=== PATIENT | female | born 1955 | race Two or more races ===

== ENCOUNTER 2023-08-01 20:10 | Emergency (ER) | payer OTHER ==
[~2023-08-01] VITALS: Ht 165.1 cm; Wt 90.0 kg
[2023-08-01] MEDS: SODIUM CHLORIDE 0.9% 500 ML IVB ONE (20:45)
[2023-08-01] MEDS ORDERED: DOCUSATE SOD 100 MG CAP PO PRN (21:15)
[2023-08-01] MEDS ORDERED: ONDANSETRON HCL 4 MG/2 ML VIAL IV PRN (21:15)
[2023-08-01 21:25] LABS: Basophils # (auto) 0.1 10 ^3/uL (0-0.2); Basophils % (auto) 0.6 % (0.0-2.0); Eosinophils # (auto) 0 10 ^3/uL (0-0.8); Eosinophils % (auto) 0.5 % (0.0-7.0); Hemoglobin 12.5 g/dL (12.2-16.2); Lymphocytes # (auto) 1.8 10 ^3/uL (0.4-5.4); Lymphocytes % (auto) 19.4 % (10.0-50.0); Mean Corpuscular Hemoglobin 30.3 pg (28.0-32.0); Mean Corpuscular Volume 91.9 fL (80.0-100.0); Monocytes # (auto) 0.6 10 ^3/uL (0-1.3); Monocytes % (auto) 6.5 % (0.0-12.0); Neutrophils # (auto) 6.9 10 ^3/uL (1.6-8.6); Red Blood Cells 4.14 10^6/uL (4.0-5.20); Red Cell Distribution Width 13.6 % (11.8-14.3); White Blood Cell 9.5 10^3/uL (4.4-10.8)
[2023-08-01 21:38] LABS: Alanine Aminotransferase 20 U/L (7-40); Albumin 4.2 g/dL (3.2-4.8); Alkaline Phosphatase 92 U/L (46-116); Anion Gap 9 (5-15); Aspartate Aminotransferase 29 U/L (13-40); BUN/Creatinine Ratio 9.5 (10.0-20.0); Bilirubin, Total 0.4 mg/dL (0.2-1.0); Blood Urea Nitrogen 11 mg/dL (9-23); Calcium 9.8 mg/dL (8.5-10.1); Carbon Dioxide 23 mmol/L (20-30); Chloride 107 mmol/L (98-107); Glucose 187 mg/dL (74-106); Potassium 4.3 mmol/L (3.5-5.1); Sodium 139 mmol/L (136-145); Total Protein 6.8 g/dL (5.7-8.2)
[2023-08-01] MEDS: ACETAMINOPHEN 325 MG TAB PO PRN (22:21)
[2023-08-01 22:38] VITALS: PULSE 86; RESP 19; O2SAT 99
[2023-08-02] MEDS ORDERED: NITROGLYCERIN 0.4 MG SL TAB SL PRN (01:00)
[2023-08-02] MEDS ORDERED: MORPHINE SULFATE INJ 2 MG/ml SYRG IV PRN (01:00)
[2023-08-02] MEDS ORDERED: DEXTROSE (50%) 50ML SYRG IV PRN (01:00)
[2023-08-02] MEDS: HYDROcodone-ACET 5/325MG TAB PO PRN (01:09)
[2023-08-02] MEDS ORDERED: IOHEXOL 350 MG/ML 100ML IJ ONE (01:18)
[2023-08-02 03:53] LABS: Rapid Influenza A Negative (Negative); Rapid Influenza B Negative (Negative)
[2023-08-02 03:54] LABS: COVID19 ANTIGEN SOFIA FIA NEGATIVE (NEGATIVE)
[2023-08-02 06:09] LABS: Basophils # (auto) 0 10 ^3/uL (0-0.2); Basophils % (auto) 0.4 % (0.0-2.0); Eosinophils # (auto) 0.1 10 ^3/uL (0-0.8); Eosinophils % (auto) 1.6 % (0.0-7.0); Hematocrit 30.6 % (36.0-46.0); Hemoglobin 10.3 g/dL (12.2-16.2); Lymphocytes # (auto) 2.6 10 ^3/uL (0.4-5.4); Lymphocytes % (auto) 39.7 % (10.0-50.0); Mean Corpuscular Hgb Conc. 33.8 g/dL (32.0-36.0); Mean Corpuscular Volume 91.7 fL (80.0-100.0); Monocytes # (auto) 0.4 10 ^3/uL (0-1.3); Monocytes % (auto) 5.9 % (0.0-12.0); Neutrophils # (auto) 3.5 10 ^3/uL (1.6-8.6); Neutrophils % (auto) 52.4 % (37.0-80.0); Nucleated Red Blood Cells % 0.1 %; Red Blood Cells 3.34 10^6/uL (4.0-5.20); Red Cell Distribution Width 13.5 % (11.8-14.3); White Blood Cell 6.7 10^3/uL (4.4-10.8)
[2023-08-02] MEDS: InsuLIN REG 1unit/0.01ml Soln (100units/ml) SC SCH (06:25)
[2023-08-02] MEDS: ACCU-CHEK COMFORT CURVE STRIP VI SCH (06:25)
[2023-08-02 06:26] LABS: Alanine Aminotransferase 12 U/L (7-40); Alkaline Phosphatase 67 U/L (46-116); Anion Gap 8 (5-15); Aspartate Aminotransferase 13 U/L (13-40); BUN/Creatinine Ratio 13.7 (10.0-20.0); Bilirubin, Total 0.4 mg/dL (0.2-1.0); Blood Urea Nitrogen 10 mg/dL (9-23); Calcium 7.3 mg/dL (8.7-10.4); Carbon Dioxide 20 mmol/L (20-30); Chloride 115 mmol/L (98-107); Glucose 113 mg/dL (74-106); Potassium 2.9 mmol/L (3.5-5.1); Sodium 143 mmol/L (136-145); Total Protein 5.1 g/dL (5.7-8.2)
[2023-08-02 08:20] VITALS: BP 131/69; PULSE 77; RESP 14; TEMP 97.8; O2SAT 98
[2023-08-02] MEDS ORDERED: ASPirin 81 mg TAB PO SCH (10:00)
[2023-08-02] MEDS ORDERED: ENOXAPARIN SOD 40 MG/0.4 ML SYRINGE SC SCH (10:00)
[2023-08-02] MEDS ORDERED: InsuLIN REG 1unit/0.01ml Soln (100units/ml) SC SCH (22:00)
== END 2023-08-02 08:37 | disposition short-term general hospital (02) ==
LOC: EDSEX 20:10 → EDBD 20:10 → EEVIPCON 20:10 → ER 20:10
DX: R42 Dizziness and giddiness (principal); E11.65 Type 2 diabetes mellitus with hyperglycemia; R79.1 Abnormal coagulation profile; E78.5 Hyperlipidemia, unspecified; I10 Essential (primary) hypertension; Z88.6 Allergy status to analgesic agent; Z20.822 Contact with and (suspected) exposure to COVID-19
CPT/HCPCS: 36415; 70450; 71045; 74176; 80053; 82962; 83036; 84484; 85025; 85379; 87426; 87804; 93005; 96360; 99291; J7040; Q9967

== ENCOUNTER 2024-04-09 13:29 | Inpatient (IN) | payer OTHER ==
[~2024-04-09] VITALS: Ht 157.5 cm; Wt 91.4 kg
[2024-04-09 15:17] LABS: Chloride 106 mmol/L (98-107); Potassium 4.2 mmol/L (3.5-5.1); Sodium 136 mmol/L (136-145)
[2024-04-09 15:18] LABS: Anion Gap 6 (5-15); Basophils # (auto) 0 10 ^3/uL (0-0.2); Basophils % (auto) 0.5 % (0.0-2.0); Carbon Dioxide 24 mmol/L (20-31); Eosinophils # (auto) 0.1 10 ^3/uL (0-0.8); Eosinophils % (auto) 1.3 % (0.0-7.0); Hematocrit 38.6 % (36.0-46.0); Lymphocytes # (auto) 2.9 10 ^3/uL (0.4-5.4); Lymphocytes % (auto) 37.8 % (10.0-50.0); Mean Corpuscular Hemoglobin 30.6 pg (28.0-32.0); Mean Corpuscular Hgb Conc. 33.8 g/dL (32.0-36.0); Mean Corpuscular Volume 90.7 fL (80.0-100.0); Monocytes # (auto) 0.5 10 ^3/uL (0-1.3); Monocytes % (auto) 6.3 % (0.0-12.0); Neutrophils # (auto) 4.1 10 ^3/uL (1.6-8.6); Neutrophils % (auto) 54.1 % (37.0-80.0); Nucleated Red Blood Cells % 0.1 %; Platelet Count (auto) 278 10^3/uL (140-450); Red Blood Cells 4.26 10^6/uL (4.0-5.20); White Blood Cell 7.6 10^3/uL (4.4-10.8)
[2024-04-09 15:19] LABS: Calcium 10.2 mg/dL (8.7-10.4)
[2024-04-09 15:23] LABS: BUN/Creatinine Ratio 18.8 (10.0-20.0); Blood Urea Nitrogen 19 mg/dL (9-23); Glucose 346 mg/dL (74-106)
[2024-04-09] MEDS: IOHEXOL 350 MG/ML 100ML IJ ONE (18:49)
[2024-04-09 19:45] VITALS: PULSE 83; RESP 22; O2SAT 98
[2024-04-09] MEDS: ASPirin 325 MG TAB PO ONE (20:19)
[2024-04-09] MEDS: NITROGLYCERIN 0.4 MG SL TAB SL ONE (21:18)
[2024-04-09] MEDS: IBUPROFEN 400 MG TAB PO ONE (22:36)
[2024-04-09] MEDS ORDERED: DEXTROSE (50%) 50ML SYRG IV PRN (23:00)
[2024-04-09] MEDS ORDERED: ONDANSETRON HCL 4 MG/2 ML VIAL IV PRN (23:00)
[2024-04-09 23:01] LABS: Urine Bacteria None Seen /hpf (None Seen)
[2024-04-09 23:12] LABS: Urine Blood Negative /uL (Negative); Urine Clarity Clear (Clear); Urine Color Light-Yellow (Yellow); Urine Protein, UAD Negative (Negative); Urine Specific Gravity 1.025 (1.001-1.035); Urine Urobilinogen Normal (Negative); Urine WBC 52 /hpf (0 - 5)
[2024-04-09] MEDS: SODIUM CHLORIDE 0.9% 1,000 ML IV SCH (23:13)
[2024-04-09] MEDS ORDERED: NITROGLYCERIN 0.4 MG SL TAB SL PRN (23:30)
[2024-04-09] MEDS ORDERED: MORPHINE SULFATE INJ 2 MG/ml SYRG IV PRN (23:30)
[2024-04-10] VITALS (8 sets, daily range): BP systolic 129–155; BP diastolic 57–76; PULSE 68–100; RESP 14–19; TEMP 97.6–98.7; O2SAT 96–100
[2024-04-10] MEDS: ACCU-CHEK COMFORT CURVE STRIP VI SCH (00:03)
[2024-04-10] MEDS: InsuLIN REG 1unit/0.01ml Soln (100units/ml) SC SCH (00:10)
[2024-04-10] MEDS: HYDROcodone-ACET 5/325MG TAB PO PRN (04:45)
[2024-04-10] MEDS: hydrALAZINE HCL 20 MG/ML VL IV PRN (04:46)
[2024-04-10] MEDS ORDERED: PANT1INJ3 IV (05:23)
[2024-04-10] MEDS ORDERED: ATOR20TA PO (05:24)
[2024-04-10] MEDS ORDERED: IBU600T PO (05:26)
[2024-04-10] MEDS: METOPROLOL TARTRATE 25 MG TAB PO SCH (09:25)
[2024-04-10] MEDS: ASPirin 81 mg TAB PO SCH (09:25)
[2024-04-10] MEDS: INSULIN LANTUS (GLARGINE) 1 /0.01ml (100units/ml) SC SCH (09:27)
[2024-04-10] MEDS: DOCUSATE SOD 100 MG CAP PO PRN (09:38)
[2024-04-10 10:09] LABS: Alanine Aminotransferase 20 U/L (7-40); Alkaline Phosphatase 104 U/L (46-116); Anion Gap 7 (5-15); Calcium 9.7 mg/dL (8.7-10.4); Carbon Dioxide 25 mmol/L (20-31); Chloride 107 mmol/L (98-107); Sodium 139 mmol/L (136-145)
[2024-04-10 10:10] LABS: BUN/Creatinine Ratio 16.8 (10.0-20.0); Blood Urea Nitrogen 16 mg/dL (9-23); Glucose 260 mg/dL (74-106)
[2024-04-10 10:12] LABS: Albumin 3.8 g/dL (3.2-4.8); Aspartate Aminotransferase 13 U/L (13-40); Bilirubin, Total 0.3 mg/dL (0.2-1.0)
[2024-04-10 10:13] LABS: Total Protein 6.5 g/dL (5.7-8.2)
[2024-04-10 10:25] LABS: Basophils # (auto) 0 10 ^3/uL (0-0.2); Basophils % (auto) 0.6 % (0.0-2.0); Eosinophils # (auto) 0.1 10 ^3/uL (0-0.8); Eosinophils % (auto) 1.9 % (0.0-7.0); Hematocrit 36.7 % (36.0-46.0); Hemoglobin 12.2 g/dL (12.2-16.2); Lymphocytes # (auto) 2.5 10 ^3/uL (0.4-5.4); Lymphocytes % (auto) 40.4 % (10.0-50.0); Mean Corpuscular Hemoglobin 30.3 pg (28.0-32.0); Mean Corpuscular Hgb Conc. 33.4 g/dL (32.0-36.0); Mean Corpuscular Volume 90.9 fL (80.0-100.0); Monocytes # (auto) 0.4 10 ^3/uL (0-1.3); Monocytes % (auto) 6.2 % (0.0-12.0); Neutrophils # (auto) 3.2 10 ^3/uL (1.6-8.6); Neutrophils % (auto) 50.9 % (37.0-80.0); Nucleated Red Blood Cells % 0.1 %; Platelet Count (auto) 243 10^3/uL (140-450); Red Blood Cells 4.03 10^6/uL (4.0-5.20); White Blood Cell 6.2 10^3/uL (4.4-10.8)
[2024-04-10 12:23] LABS: Magnesium 1.9 mg/dL (1.6-2.6)
[2024-04-10 12:24] LABS: Phosphorus 3.6 mg/dL (2.4-5.1)
[2024-04-10 12:26] LABS: Partial Thromboplastin Time 25.7 SEC (24.5-34.5); Prothrombin Time 10.6 sec (9.3-11.8)
[2024-04-10] MEDS: cefTRIAXone 1GM/50ML D5W 50 ML IV ONE (12:41)
[2024-04-10 14:34] LABS: Amphetamine Screen, Urine Neg (NEGATIVE); Barbiturate Scree,Urine Neg (NEGATIVE); Benzodiazephine Screen, Urine Neg (NEGATIVE)
[2024-04-10 14:35] LABS: Cocaine Screen, Urine Neg (NEGATIVE); Opiate Scree,Urine Neg (NEGATIVE)
[2024-04-10 14:36] LABS: Cannabinoid Screen, Urine Neg (NEGATIVE); Phencyclidine Screen, Urine Neg (NEGATIVE)
[2024-04-10] MEDS: traZODone HCL 50 MG TAB PO SCH (22:18)
[2024-04-10] MEDS: ATORVASTATIN 20 MG TAB PO SCH (22:18)
[2024-04-11] VITALS (9 sets, daily range): BP systolic 97–153; BP diastolic 43–65; PULSE 63–93; RESP 17–19; TEMP 97.3–98.1; O2SAT 96–99
[2024-04-11] MEDS: PANTOPRAZOLE 40 MG TAB PO SCH (05:49)
[2024-04-11] MEDS: SILDENAFIL CITRATE 20 MG TAB PO SCH (08:15)
[2024-04-11] MEDS: cefTRIAXone 1GM/50ML D5W 50 ML IV SCH (10:06)
[2024-04-11] MEDS: LACTULOSE 20Gm/30ML SOLN PO SCH (10:06)
[2024-04-12] VITALS (9 sets, daily range): BP systolic 92–146; BP diastolic 38–67; PULSE 83–107; RESP 18–19; TEMP 97.4–98.2; O2SAT 94–100
[2024-04-12] MEDS: INSULIN LANTUS (GLARGINE) 1 /0.01ml (100units/ml) SC ONE (00:47)
[2024-04-12] MEDS: SODIUM CHLORIDE 0.9% 500 ML IV ONE (01:52)
[2024-04-12 07:21] LABS: Chloride 110 mmol/L (98-107); Potassium 3.9 mmol/L (3.5-5.1); Sodium 139 mmol/L (136-145)
[2024-04-12 07:22] LABS: Anion Gap 9 (5-15); Basophils # (auto) 0 10 ^3/uL (0-0.2); Basophils % (auto) 0.5 % (0.0-2.0); Calcium 9.4 mg/dL (8.7-10.4); Carbon Dioxide 20 mmol/L (20-31); Eosinophils # (auto) 0.2 10 ^3/uL (0-0.8); Eosinophils % (auto) 2.1 % (0.0-7.0); Hematocrit 35.4 % (36.0-46.0); Lymphocytes # (auto) 2.6 10 ^3/uL (0.4-5.4); Lymphocytes % (auto) 31.8 % (10.0-50.0); Mean Corpuscular Hemoglobin 31.1 pg (28.0-32.0); Mean Corpuscular Hgb Conc. 33.9 g/dL (32.0-36.0); Mean Corpuscular Volume 91.6 fL (80.0-100.0); Monocytes # (auto) 0.5 10 ^3/uL (0-1.3); Monocytes % (auto) 6.6 % (0.0-12.0); Neutrophils # (auto) 4.9 10 ^3/uL (1.6-8.6); Nucleated Red Blood Cells % 0.1 %; Platelet Count (auto) 219 10^3/uL (140-450); Red Blood Cells 3.87 10^6/uL (4.0-5.20); White Blood Cell 8.3 10^3/uL (4.4-10.8)
[2024-04-12 07:27] LABS: BUN/Creatinine Ratio 12.8 (10.0-20.0); Blood Urea Nitrogen 11 mg/dL (9-23); Glucose 160 mg/dL (74-106)
[2024-04-12] MEDS: REGADENOSON 0.4 MG/5 ML SYRG IV ONE ×2 (09:59)
[2024-04-12] MEDS: IBUPROFEN 600 MG TAB PO PRN (11:15)
[2024-04-12 11:36] LABS: Base Excess -5.1 mmol/L (-2.0-3.0)
[2024-04-12] MEDS ORDERED: INSULIN LANTUS (GLARGINE) 1 /0.01ml (100units/ml) SC SCH (22:00)
[2024-04-12] MEDS: CEPHALEXIN 250 MG CAP PO SCH (22:11)
[2024-04-12] MEDS: INSULIN LANTUS (GLARGINE) 1 /0.01ml (100units/ml) SC SCH (22:29)
[2024-04-13 05:00] VITALS: BP 126/57; PULSE 68; RESP 17; TEMP 97.9; O2SAT 100
[2024-04-13] MEDS: FUROSEMIDE 40 MG TAB PO SCH (06:03)
[2024-04-13 09:00] VITALS: BP 106/54; PULSE 81; RESP 16; TEMP 98.6; O2SAT 100
[2024-04-13] MEDS: POTASSIUM CHL 10 Meq TABLET PO SCH (09:33)
[2024-04-13] MEDS ORDERED: INSU100I51 SC (10:16)
[2024-04-13] MEDS ORDERED: SILD20TA41 PO (10:16)
[2024-04-13] MEDS ORDERED: CEPH250C PO (12:44)
== END 2024-04-13 10:37 | disposition home or self-care (01) | DRG 314 ==
LOC: ER 13:29 → TELE 23:21 → TELE-WESTW 04-10 03:10 → WEST WING 04-12 19:10
PROVIDERS: ADMIT Internal Medicine; ATTEND Internal Medicine
DX: I27.20 Pulmonary hypertension, unspecified (principal); I50.33 Acute on chronic diastolic (congestive) heart failure; N39.0 Urinary tract infection, site not specified; I11.0 Hypertensive heart disease with heart failure; E11.65 Type 2 diabetes mellitus with hyperglycemia; E78.5 Hyperlipidemia, unspecified; M71.21 Synovial cyst of popliteal space [Baker], right knee; F41.9 Anxiety disorder, unspecified; F32.A Depression, unspecified; E78.2 Mixed hyperlipidemia; E66.01 Morbid (severe) obesity due to excess calories; E88.810 Metabolic syndrome; Z88.8 Allergy status to other drugs, medicaments and biological substances; Z79.82 Long term (current) use of aspirin; Z68.36 Body mass index [BMI] 36.0-36.9, adult
CPT/HCPCS: 36415; 36600; 70450; 71045; 71275; 78452; 80048; 80053; 80061; 80307; 81001; 82306; 82607; 82805; 82962; 83036; 83735; 83880; 84100; 84443; 84484; 85025; 85379; 85610; 85730; 87086; 93005; 93017; 93306; 93970; G0378; J1815